=== PATIENT | female | born 1990 | race Caucasian/White ===

== ENCOUNTER 2019-03-27 09:02 | Inpatient (IN) | payer OTHER ==
[2019-03-27] MEDS ORDERED: OXYTOCIN 30 UNITS/LR 500 ML IV (09:30)
[2019-03-27] MEDS ORDERED: CARBOPROST 250 MCG INJ IM (09:30)
[2019-03-27] MEDS ORDERED: MISOPROSTOL 200 MCG TAB PR (09:30)
[2019-03-27] MEDS ORDERED: BUTORPHANOL 2 MG INJ IV ×2 (09:30)
[2019-03-27] MEDS ORDERED: LIDOCAINE 1% (MPF) 30 ML INJ INJ (09:30)
[2019-03-27] MEDS: LACTATED RINGER'S 1,000 ML IV ×2 (09:56→17:29)
[2019-03-27 10:07] LABS: ADD MAN DIFF? NO
[2019-03-27 10:08] LABS: BASOPHILS % 0.5 % (0.0-2.0); EOSINOPHILS # 0.1 10^3/ul (0.0-0.5); EOSINOPHILS % 0.8 % (0.0-7.0); HEMATOCRIT 34.7 % (37.0-47.0); HEMOGLOBIN 11.8 g/dl (12.0-16.0); LYMPHOCYTES # 2.1 10^3/ul (0.8-2.9); LYMPHOCYTES % 25.1 % (15.0-51.0); MEAN CORPUSCULAR HEMOGLOBIN 32.7 pg (29.0-33.0); MEAN CORPUSCULAR VOLUME 96.1 fl (82.0-101.0); MEAN PLATELET VOLUME 10.1 fl (7.4-10.4); MONOCYTE # 0.6 10^3/ul (0.3-0.9); MONOCYTES % 6.6 % (0.0-11.0); NEUTROPHIL # 5.6 10^3/ul (1.6-7.5); NEUTROPHILS % 65.8 % (39.0-77.0); PLATELET COUNT 195 10^3/UL (140-415); RED BLOOD COUNT 3.61 10^6/ul (4.20-5.40); RED CELL DISTRIBUTION WIDTH 12.5 % (11.5-14.5)
[2019-03-27 10:08] LABS: WHITE BLOOD COUNT 8.5 10^3/ul (4.8-10.8)
[2019-03-27 10:43] LABS: INR 0.87; PARTIAL THROMBOPLASTIN TIME 24.1 Sec (23.0-35.0); PROTIME 11.9 Sec (11.9-14.9); PT RATIO 0.9
[2019-03-27] MEDS: MISOPROSTOL 50 MCG CAPSULE PO ×3 (11:48→20:06)
[2019-03-27] MEDS ORDERED: MISOPROSTOL 50 MCG CAPSULE PO (13:00)
[2019-03-27 22:04] LABS: RAPID PLASMA REAGIN NONREACTIVE (NR)
[2019-03-28] MEDS: MISOPROSTOL 50 MCG CAPSULE PO (00:31)
[2019-03-28] MEDS: LACTATED RINGER'S 1,000 ML IV ×3 (00:31→10:08)
[2019-03-28] MEDS ORDERED: NALOXONE (0.4 MG/ML) INJ IV (05:30)
[2019-03-28] MEDS ORDERED: FENTAnyl 2MCG/ML-ROPIV 0.2% 100 ML BAG EPI (05:30)
[2019-03-28] MEDS ORDERED: KETOROLAC 30 MG INJ IV (05:30)
[2019-03-28] MEDS ORDERED: HYDROmorphONE 0.5 MG/0.5 ML SYG IV ×2 (05:30)
[2019-03-28] MEDS ORDERED: ONDANSETRON 4 MG INJ IV ×2 (05:30→19:30)
[2019-03-28] MEDS ORDERED: DIPHENHYDRAMINE 50 MG INJ IV ×2 (05:30→19:30)
[2019-03-28] MEDS: OXYTOCIN 30 UNITS/LR 500 ML IV ×4 (06:28→17:19)
[2019-03-28] MEDS: MINERAL OIL LIGHT 10 ML VIAL TOP (08:30)
[2019-03-28] MEDS: METHYLERGONOVINE 0.2 MG INJ IM (10:46)
[2019-03-28] MEDS: IBUPROFEN 600 MG TAB PO (12:09)
[2019-03-28] MEDS: LACTATED RINGER'S 1,000 ML IV* (19:17)
[2019-03-28] MEDS ORDERED: LANOLIN HPA 1 PKT TOP (19:30)
[2019-03-28] MEDS ORDERED: DIBUCAINE 1% 30 GM OINT TOP (19:30)
[2019-03-28] MEDS ORDERED: OXYTOCIN 30 UNITS/LR 500 ML IV (19:30)
[2019-03-28] MEDS ORDERED: DIPHENHYDRAMINE 25 MG CAP PO (19:30)
[2019-03-28] MEDS ORDERED: ONDANSETRON 4 MG TAB PO (19:30)
[2019-03-28] MEDS ORDERED: CARBOPROST 250 MCG INJ IM (19:30)
[2019-03-28] MEDS ORDERED: ACETAMINOPHEN 325 MG TAB PO ×2 (19:30)
[2019-03-28] MEDS ORDERED: MAGNESIUM HYDROXIDE 30ML CUP PO (19:30)
[2019-03-28] MEDS ORDERED: MISOPROSTOL 200 MCG TAB PR (19:30)
[2019-03-28] MEDS ORDERED: METHYLERGONOVINE 0.2 MG INJ IM (19:30)
[2019-03-28] MEDS: IBUPROFEN 800 MG TAB PO (23:00)
[2019-03-28] MEDS ORDERED: HYDROCODONE/APAP (5/325) TAB PO (23:00)
[2019-03-28] MEDS: SENNA/DOCUSATE NA (8.6MG/50MG) TAB PO (23:04)
[2019-03-28] MEDS: HYDROCODONE/APAP (5/325) TAB PO (23:04)
[2019-03-29] MEDS: LACTATED RINGER'S 1,000 ML IV* (03:17)
[2019-03-29] MEDS ORDERED: IBUPROFEN 800 MG TAB PO (06:00)
[2019-03-29] MEDS: IBUPROFEN 800 MG TAB PO ×5 (06:22→23:45)
[2019-03-29 08:42] LABS: ADD MAN DIFF? NO
[2019-03-29 08:50] LABS: BASOPHIL # 0.1 10^3/ul (0.0-0.1); BASOPHILS % 0.4 % (0.0-2.0); EOSINOPHILS # 0.1 10^3/ul (0.0-0.5); EOSINOPHILS % 0.6 % (0.0-7.0); HEMATOCRIT 35.6 % (37.0-47.0); HEMOGLOBIN 11.8 g/dl (12.0-16.0); LYMPHOCYTES # 2.3 10^3/ul (0.8-2.9); LYMPHOCYTES % 20.2 % (15.0-51.0); MEAN CORPUSCULAR HGB CONC 33.1 g/dl (32.0-37.0); MEAN CORPUSCULAR VOLUME 96.5 fl (82.0-101.0); MEAN PLATELET VOLUME 9.9 fl (7.4-10.4); MONOCYTE # 0.6 10^3/ul (0.3-0.9); MONOCYTES % 5.3 % (0.0-11.0); NEUTROPHIL # 8.3 10^3/ul (1.6-7.5); NEUTROPHILS % 72.9 % (39.0-77.0); PLATELET COUNT 186 10^3/UL (140-415); RED BLOOD COUNT 3.69 10^6/ul (4.20-5.40); RED CELL DISTRIBUTION WIDTH 12.6 % (11.5-14.5)
[2019-03-29 08:50] LABS: WHITE BLOOD COUNT 11.4 10^3/ul (4.8-10.8)
[2019-03-30] MEDS: IBUPROFEN 800 MG TAB PO ×2 (06:18→12:33)
[2019-03-30 07:30] LABS: ADD MAN DIFF? NO
[2019-03-30 07:34] LABS: BASOPHIL # 0.1 10^3/ul (0.0-0.1); BASOPHILS % 0.5 % (0.0-2.0); EOSINOPHILS # 0.2 10^3/ul (0.0-0.5); EOSINOPHILS % 1.7 % (0.0-7.0); HEMATOCRIT 35.8 % (37.0-47.0); HEMOGLOBIN 11.9 g/dl (12.0-16.0); LYMPHOCYTES # 2.8 10^3/ul (0.8-2.9); LYMPHOCYTES % 29.3 % (15.0-51.0); MEAN CORPUSCULAR HEMOGLOBIN 32.2 pg (29.0-33.0); MEAN CORPUSCULAR HGB CONC 33.2 g/dl (32.0-37.0); MEAN PLATELET VOLUME 9.3 fl (7.4-10.4); MONOCYTE # 0.6 10^3/ul (0.3-0.9); MONOCYTES % 6.7 % (0.0-11.0); NEUTROPHIL # 5.7 10^3/ul (1.6-7.5); NEUTROPHILS % 60.7 % (39.0-77.0); PLATELET COUNT 193 10^3/UL (140-415); RED BLOOD COUNT 3.69 10^6/ul (4.20-5.40); RED CELL DISTRIBUTION WIDTH 12.9 % (11.5-14.5)
[2019-03-30 07:34] LABS: WHITE BLOOD COUNT 9.4 10^3/ul (4.8-10.8)
[2019-03-30] MEDS: MEASLES,MUMPS,RUBELLA VACCINE INJ SC* (09:00)
[2019-03-30] MEDS: VARICELLA VACCINE LIVE/PF 1,350 UNIT/0.5 ML ML SC* (09:00)
[2019-03-30] MEDS: DIPHTH/TET/ACEL PERTUSS (ADULT) 0.5 ML VIAL IM* (10:12)
== END 2019-03-30 14:25 | disposition home or self-care (01) | DRG 807 ==
LOC: L-D 09:02 → PP1 03-28 14:40
PROVIDERS: Obstetrics & Gynecology
PROC: 10E0XZZ Delivery of Products of Conception, External Approach (ICD-10-PCS; principal; 2019-03-28)
PROC: 0HQ9XZZ Repair Perineum Skin, External Approach (ICD-10-PCS; 2019-03-28)
DX: O48.0 Post-term pregnancy (principal); Z37.0 Single live birth; O70.0 First degree perineal laceration during delivery; O99.214 Obesity complicating childbirth; E66.9 Obesity, unspecified; Z3A.40 40 weeks gestation of pregnancy; Z23 Encounter for immunization
CPT/HCPCS: 62322; 76815; 85025; 85610; 85730; 86592; 86850; 86900; 86901; 90715; 90716